=== PATIENT | male | born 1945 | race Caucasian/White ===

== ENCOUNTER 2020-03-25 19:14 | Emergency (ER) | payer OTHER ==
[~2020-03-25] VITALS: Ht 172.7 cm; Wt 83.9 kg
[2020-03-25] MEDS ORDERED: AMLOD-VALSA-HC1 EAC1 (19:30)
== END 2020-03-25 23:56 | disposition home or self-care (01) ==
LOC: ER 19:14 → EDSEX 20:37 → ER 20:37
DX: S40.011A Contusion of right shoulder, initial encounter (principal); S80.01XA Contusion of right knee, initial encounter; S60.212A Contusion of left wrist, initial encounter; W18.39XA Other fall on same level, initial encounter; Y93.89 Activity, other specified; Y92.488 Other paved roadways as the place of occurrence of the external cause; Y99.8 Other external cause status

== ENCOUNTER 2020-11-05 09:44 | Outpatient (CLI) | payer OTHER ==
[~2020-11-05 09:44] MED LIST: AMLOD-VALSA-HC1 EAC1
== END 2020-11-05 09:57 | disposition home or self-care (01) ==
LOC: SONOGRAMA 09:44 → MAMO-SONO 09:45 → SONOGRAMA 09:57
PROVIDERS: ATTEND Surgery Vascular Surgery
DX: R10.11 Right upper quadrant pain (principal); R10.32 Left lower quadrant pain

== ENCOUNTER 2020-11-29 10:03 | Outpatient (CLI) | payer OTHER | END 2020-11-29 10:10 | disposition home or self-care (01) | LOC: RAD 10:03 | PROVIDERS: ATTEND Psychiatry & Neurology Neurology | DX: G64 Other disorders of peripheral nervous system (principal); M77.30 Calcaneal spur, unspecified foot ==

== ENCOUNTER 2021-10-21 09:45 | Outpatient (CLI) | payer OTHER | END 2021-10-21 10:00 | disposition home or self-care (01) | LOC: RAD 09:45 | PROVIDERS: ATTEND Specialist | DX: S43.90XA Sprain of unspecified parts of unspecified shoulder girdle, initial encounter (principal); M54.50 Low back pain, unspecified; M25.511 Pain in right shoulder; M25.532 Pain in left wrist; M25.561 Pain in right knee ==

== ENCOUNTER 2022-01-15 10:58 | Outpatient (CLI) | payer OTHER | END 2022-01-15 11:08 | disposition home or self-care (01) | LOC: RAD 10:58 | PROVIDERS: ATTEND Physical Medicine & Rehabilitation | DX: M79.671 Pain in right foot (principal); M51.16 Intervertebral disc disorders with radiculopathy, lumbar region ==

== ENCOUNTER 2022-01-16 09:12 | Outpatient (CLI) | payer OTHER | END 2022-01-16 09:14 | disposition home or self-care (01) | LOC: NUCLEAR 09:12 | PROVIDERS: ATTEND Physical Medicine & Rehabilitation | DX: I73.9 Peripheral vascular disease, unspecified (principal); R22.43 Localized swelling, mass and lump, lower limb, bilateral ==

== ENCOUNTER → 2022-01-27 11:05 | Outpatient (CLI) | payer OTHER | END | disposition home or self-care (01) | LOC: NUCLEAR 01-20 09:00 | PROVIDERS: ATTEND Physical Medicine & Rehabilitation | DX: I73.9 Peripheral vascular disease, unspecified (principal) ==

== ENCOUNTER 2022-03-11 10:31 | Outpatient (CLI) | payer OTHER | END 2022-03-11 10:39 | disposition home or self-care (01) | LOC: MRI 10:31 | PROVIDERS: ATTEND Physical Medicine & Rehabilitation | DX: M54.50 Low back pain, unspecified (principal); M48.08 Spinal stenosis, sacral and sacrococcygeal region | CPT/HCPCS: 72148 ==